=== PATIENT | female | born 1935 | race Caucasian/White ===

== ENCOUNTER 2018-03-05 13:50 | Inpatient (IN) | payer MEDICARE ==
[2018-03-05] MEDS ORDERED: Dextrose 50% Abboject 50 ML SYRINGE SLOW IVP PRN (17:40)
[2018-03-05] MEDS ORDERED: HumaLOG 300 UNITS/3 ML VIAL SC PRN ×2 (17:40)
[2018-03-05] MEDS ORDERED: Dextrose 5% in Water 1,000 ML IV PRN (17:40)
[2018-03-05] MEDS ORDERED: Nystatin Powder 15 GM BOT TOP PRN (18:07)
[2018-03-05] MEDS: Docusate 100 MG CAP PO SCH (20:23)
[2018-03-05] MEDS: Famotidine 20 MG TAB PO SCH (20:23)
[2018-03-05] MEDS: Furosemide 20 MG TAB PO SCH (20:24)
[2018-03-05] MEDS: rOPINIRole HCl 2 MG TAB PO SCH (20:25)
[2018-03-06 05:36] LABS: #Eosinphils 0.1 thou/uL (0.0-0.7); #Lymphocytes 1.4 thou/uL (1.20-3.40); #Monocytes 0.6 thou/uL (0.11-0.59); #Neutrophils 4.5 thou/uL (1.40-6.50); %Basophils 0.7 % (0.0-1.0); %Eosinophils 1.6 % (0.0-10.0); %Lymphocytes 20.9 % (21.0-51.0); %Monocytes 8.3 % (0.0-10.0); %Neutrophils 68.5 % (42.0-75.0); Hemoglobin 9.9 g/dL (12.0-16.0); Mean Corpuscular HGB CONC 33.1 g/dL (32.0-36.0); Mean Corpuscular Hemoglobin 30.4 pg (27.0-31.0); Mean Corpuscular Volume 91.9 fl (81.0-99.0); Mean Platelet Volume 6.9 fL (7.4-10.4); Platelet Count 184 thou/uL (130-400); RBC Distribution Width 13.7 % (11.5-14.5); Red Blood Cell (RBC) Count 3.25 mill/uL (4.20-5.40); White Blood Cell (WBC) Count 6.6 thou/uL (4.8-10.8)
[2018-03-06 05:47] LABS: Anion Gap 16 mmol/L (10-20); BUN (Urea Nitrogen) 48 mg/dL (9.8-20.1); Calc. Creatinine Clearance 52 mL/min (70-130); Calcium 9.2 mg/dL (7.8-10.44); Carbon Dioxide 36 mmol/L (23-31); Chloride 98 mmol/L (98-107); Estimated GFR-MDRD 30; Glucose 106 mg/dL (83-110); Potassium 3.8 mmol/L (3.5-5.1); Sodium 146 mmol/L (136-145)
[2018-03-06] MEDS: Carvedilol 3.125 MG TAB PO SCH ×2 (09:45→18:07)
[2018-03-06] MEDS: Potassium Chloride 10 MEQ TAB PO SCH (09:45)
[2018-03-06] MEDS: Allopurinol 100 MG TAB PO SCH (09:46)
[2018-03-06] MEDS: Docusate 100 MG CAP PO SCH ×2 (09:46→20:43)
[2018-03-06] MEDS: Aspirin 81 mg Enteric Coated Tablet PO SCH (09:46)
[2018-03-06] MEDS: Famotidine 20 MG TAB PO SCH ×2 (09:46→20:43)
[2018-03-06] MEDS: Losartan Potassium 50 MG TAB PO SCH (09:46)
[2018-03-06] MEDS: Furosemide 20 MG TAB PO SCH ×2 (09:46→20:43)
[2018-03-06] MEDS: Ferrous Sulfate 325 MG TAB PO SCH (09:47)
[2018-03-06] MEDS: rOPINIRole HCl 2 MG TAB PO SCH (20:43)
[2018-03-07] MEDS: Ferrous Sulfate 325 MG TAB PO SCH (09:05)
[2018-03-07] MEDS: Docusate 100 MG CAP PO SCH ×2 (09:05→21:14)
[2018-03-07] MEDS: Losartan Potassium 50 MG TAB PO SCH (09:05)
[2018-03-07] MEDS: Aspirin 81 mg Enteric Coated Tablet PO SCH (09:05)
[2018-03-07] MEDS: Allopurinol 100 MG TAB PO SCH (09:05)
[2018-03-07] MEDS: Famotidine 20 MG TAB PO SCH ×2 (09:05→21:15)
[2018-03-07] MEDS: Furosemide 20 MG TAB PO SCH ×2 (09:06→21:23)
[2018-03-07] MEDS: Potassium Chloride 10 MEQ TAB PO SCH (09:06)
[2018-03-07] MEDS: Carvedilol 3.125 MG TAB PO SCH ×2 (09:06→17:46)
[2018-03-07] MEDS: rOPINIRole HCl 2 MG TAB PO SCH (21:13)
[2018-03-07] MEDS: Lorazepam 0.5 MG TAB PO PRN (22:57)
[2018-03-08 05:31] LABS: #Eosinphils 0.2 thou/uL (0.0-0.7); #Lymphocytes 1.2 thou/uL (1.20-3.40); #Monocytes 0.5 thou/uL (0.11-0.59); #Neutrophils 4.4 thou/uL (1.40-6.50); %Basophils 0.6 % (0.0-1.0); %Eosinophils 3.2 % (0.0-10.0); %Lymphocytes 18.4 % (21.0-51.0); %Monocytes 7.8 % (0.0-10.0); %Neutrophils 69.9 % (42.0-75.0); Hemoglobin 10.3 g/dL (12.0-16.0); Mean Corpuscular HGB CONC 34.2 g/dL (32.0-36.0); Mean Corpuscular Hemoglobin 31.3 pg (27.0-31.0); Mean Corpuscular Volume 91.6 fl (81.0-99.0); Mean Platelet Volume 7.1 fL (7.4-10.4); Platelet Count 166 thou/uL (130-400); RBC Distribution Width 13.7 % (11.5-14.5); Red Blood Cell (RBC) Count 3.28 mill/uL (4.20-5.40); White Blood Cell (WBC) Count 6.4 thou/uL (4.8-10.8)
[2018-03-08 05:43] LABS: Anion Gap 18 mmol/L (10-20); BUN (Urea Nitrogen) 33 mg/dL (9.8-20.1); Calc. Creatinine Clearance 58 mL/min (70-130); Calcium 9.1 mg/dL (7.8-10.44); Carbon Dioxide 34 mmol/L (23-31); Estimated GFR-MDRD 35; Glucose 104 mg/dL (83-110)
[2018-03-08 05:47] LABS: Chloride 97 mmol/L (98-107); Potassium 3.7 mmol/L (3.5-5.1); Sodium 146 mmol/L (136-145)
[2018-03-08] MEDS: Lorazepam 0.5 MG TAB PO PRN (08:44)
[2018-03-08] MEDS: Docusate 100 MG CAP PO SCH ×2 (08:44→20:29)
[2018-03-08] MEDS: Famotidine 20 MG TAB PO SCH ×2 (08:44→20:28)
[2018-03-08] MEDS: Potassium Chloride 10 MEQ TAB PO SCH (08:44)
[2018-03-08] MEDS: Allopurinol 100 MG TAB PO SCH (08:45)
[2018-03-08] MEDS: Furosemide 20 MG TAB PO SCH (08:45)
[2018-03-08] MEDS: Aspirin 81 mg Enteric Coated Tablet PO SCH (08:45)
[2018-03-08] MEDS: Ferrous Sulfate 325 MG TAB PO SCH (08:45)
[2018-03-08] MEDS: Carvedilol 3.125 MG TAB PO SCH ×2 (08:45→17:43)
[2018-03-08] MEDS: Losartan Potassium 50 MG TAB PO SCH (08:45)
[2018-03-08] MEDS: Furosemide 40 MG TAB PO SCH (13:55)
[2018-03-08] MEDS: rOPINIRole HCl 2 MG TAB PO SCH (20:29)
[2018-03-09] MEDS: Allopurinol 100 MG TAB PO SCH (08:49)
[2018-03-09] MEDS: Potassium Chloride 10 MEQ TAB PO SCH (08:50)
[2018-03-09] MEDS: Losartan Potassium 50 MG TAB PO SCH (08:50)
[2018-03-09] MEDS: Carvedilol 3.125 MG TAB PO SCH ×2 (08:50→16:46)
[2018-03-09] MEDS: Famotidine 20 MG TAB PO SCH ×2 (08:50→20:30)
[2018-03-09] MEDS: Docusate 100 MG CAP PO SCH ×2 (08:50→20:30)
[2018-03-09] MEDS: Aspirin 81 mg Enteric Coated Tablet PO SCH (08:50)
[2018-03-09] MEDS: Furosemide 40 MG TAB PO SCH ×2 (08:50→13:38)
[2018-03-09] MEDS: Ferrous Sulfate 325 MG TAB PO SCH (08:51)
[2018-03-09] MEDS: Acetaminophen 325 MG TAB PO PRN (09:41)
[2018-03-09] MEDS: rOPINIRole HCl 2 MG TAB PO SCH (20:30)
[2018-03-10] MEDS: Carvedilol 3.125 MG TAB PO SCH ×2 (09:15→17:24)
[2018-03-10] MEDS: Furosemide 40 MG TAB PO SCH ×2 (09:15→14:02)
[2018-03-10] MEDS: Losartan Potassium 50 MG TAB PO SCH (09:15)
[2018-03-10] MEDS: Aspirin 81 mg Enteric Coated Tablet PO SCH (09:16)
[2018-03-10] MEDS: Famotidine 20 MG TAB PO SCH ×2 (09:16→21:09)
[2018-03-10] MEDS: Docusate 100 MG CAP PO SCH ×2 (09:16→21:09)
[2018-03-10] MEDS: Potassium Chloride 10 MEQ TAB PO SCH (09:17)
[2018-03-10] MEDS: Ferrous Sulfate 325 MG TAB PO SCH (09:17)
[2018-03-10] MEDS: Allopurinol 100 MG TAB PO SCH (09:17)
[2018-03-10] MEDS: rOPINIRole HCl 2 MG TAB PO SCH (21:09)
[2018-03-11] MEDS: Acetaminophen 325 MG TAB PO PRN (08:49)
[2018-03-11] MEDS: Allopurinol 100 MG TAB PO SCH (08:53)
[2018-03-11] MEDS: Carvedilol 3.125 MG TAB PO SCH ×2 (08:54→16:50)
[2018-03-11] MEDS: Famotidine 20 MG TAB PO SCH ×2 (08:54→20:54)
[2018-03-11] MEDS: Aspirin 81 mg Enteric Coated Tablet PO SCH (08:54)
[2018-03-11] MEDS: Furosemide 40 MG TAB PO SCH ×2 (08:54→13:59)
[2018-03-11] MEDS: Docusate 100 MG CAP PO SCH ×2 (08:54→20:54)
[2018-03-11] MEDS: Potassium Chloride 10 MEQ TAB PO SCH (08:55)
[2018-03-11] MEDS: Ferrous Sulfate 325 MG TAB PO SCH (08:55)
[2018-03-11] MEDS: Losartan Potassium 50 MG TAB PO SCH (08:56)
[2018-03-11] MEDS: rOPINIRole HCl 2 MG TAB PO SCH (20:54)
[2018-03-11] MEDS: Lorazepam 0.5 MG TAB PO PRN (23:56)
[2018-03-12 06:08] LABS: Anion Gap 17 mmol/L (10-20); BUN (Urea Nitrogen) 21 mg/dL (9.8-20.1); Calc. Creatinine Clearance 55 mL/min (70-130); Calcium 9.4 mg/dL (7.8-10.44); Carbon Dioxide 36 mmol/L (23-31); Estimated GFR-MDRD 32; Glucose 95 mg/dL (83-110)
[2018-03-12 06:13] LABS: Chloride 95 mmol/L (98-107); Potassium 3.8 mmol/L (3.5-5.1); Sodium 144 mmol/L (136-145)
[2018-03-12 06:14] LABS: #Basophils 0.1 thou/uL (0.0-0.2); #Eosinphils 0.1 thou/uL (0.0-0.7); #Lymphocytes 1.5 thou/uL (1.20-3.40); #Monocytes 0.6 thou/uL (0.11-0.59); #Neutrophils 4.3 thou/uL (1.40-6.50); %Basophils 0.8 % (0.0-1.0); %Eosinophils 2.2 % (0.0-10.0); %Lymphocytes 22.1 % (21.0-51.0); %Neutrophils 65.8 % (42.0-75.0); Hemoglobin 10.8 g/dL (12.0-16.0); Mean Corpuscular HGB CONC 32.7 g/dL (32.0-36.0); Mean Corpuscular Hemoglobin 30.4 pg (27.0-31.0); Mean Platelet Volume 7.9 fL (7.4-10.4); Platelet Count 170 thou/uL (130-400); RBC Distribution Width 14.3 % (11.5-14.5); Red Blood Cell (RBC) Count 3.54 mill/uL (4.20-5.40); White Blood Cell (WBC) Count 6.6 thou/uL (4.8-10.8)
[2018-03-12] MEDS: Aspirin 81 mg Enteric Coated Tablet PO SCH (08:57)
[2018-03-12] MEDS: Ferrous Sulfate 325 MG TAB PO SCH (08:58)
[2018-03-12] MEDS: Famotidine 20 MG TAB PO SCH ×2 (08:58→21:03)
[2018-03-12] MEDS: Furosemide 40 MG TAB PO SCH ×2 (08:58→14:22)
[2018-03-12] MEDS: Potassium Chloride 10 MEQ TAB PO SCH (08:58)
[2018-03-12] MEDS: Allopurinol 100 MG TAB PO SCH (08:59)
[2018-03-12] MEDS: Carvedilol 3.125 MG TAB PO SCH ×2 (08:59→16:36)
[2018-03-12] MEDS: Docusate 100 MG CAP PO SCH ×2 (08:59→21:03)
[2018-03-12] MEDS: Losartan Potassium 50 MG TAB PO SCH (09:00)
[2018-03-12] MEDS ORDERED: Furosemide 20 MG TAB PO SCH (09:00)
[2018-03-12] MEDS: rOPINIRole HCl 2 MG TAB PO SCH (21:03)
[2018-03-12] MEDS: Lorazepam 0.5 MG TAB PO PRN (22:01)
[2018-03-13] MEDS: Allopurinol 100 MG TAB PO SCH (08:53)
[2018-03-13] MEDS: Carvedilol 3.125 MG TAB PO SCH ×2 (08:54→17:25)
[2018-03-13] MEDS: Docusate 100 MG CAP PO SCH ×2 (08:54→20:37)
[2018-03-13] MEDS: Losartan Potassium 50 MG TAB PO SCH (08:54)
[2018-03-13] MEDS: Aspirin 81 mg Enteric Coated Tablet PO SCH (08:55)
[2018-03-13] MEDS: Furosemide 40 MG TAB PO SCH ×2 (08:55→15:08)
[2018-03-13] MEDS: Potassium Chloride 10 MEQ TAB PO SCH (08:55)
[2018-03-13] MEDS: Famotidine 20 MG TAB PO SCH ×2 (08:55→20:37)
[2018-03-13] MEDS: Ferrous Sulfate 325 MG TAB PO SCH (08:55)
[2018-03-13] MEDS: rOPINIRole HCl 2 MG TAB PO SCH (20:37)
[2018-03-14] MEDS: Ferrous Sulfate 325 MG TAB PO SCH (08:01)
[2018-03-14] MEDS: Docusate 100 MG CAP PO SCH ×2 (08:01→21:17)
[2018-03-14] MEDS: Furosemide 40 MG TAB PO SCH ×2 (08:01→14:31)
[2018-03-14] MEDS: Carvedilol 3.125 MG TAB PO SCH ×2 (08:01→17:26)
[2018-03-14] MEDS: Aspirin 81 mg Enteric Coated Tablet PO SCH (08:01)
[2018-03-14] MEDS: Potassium Chloride 10 MEQ TAB PO SCH (08:02)
[2018-03-14] MEDS: Allopurinol 100 MG TAB PO SCH (08:02)
[2018-03-14] MEDS: Losartan Potassium 50 MG TAB PO SCH (08:02)
[2018-03-14] MEDS: Famotidine 20 MG TAB PO SCH ×2 (08:02→21:18)
[2018-03-14] MEDS: Acetaminophen 325 MG TAB PO PRN (15:49)
[2018-03-14] MEDS: rOPINIRole HCl 2 MG TAB PO SCH (21:18)
[2018-03-15] MEDS: Furosemide 40 MG TAB PO SCH ×2 (09:28→13:32)
[2018-03-15] MEDS: Allopurinol 100 MG TAB PO SCH (09:28)
[2018-03-15] MEDS: Docusate 100 MG CAP PO SCH ×2 (09:28→21:02)
[2018-03-15] MEDS: Ferrous Sulfate 325 MG TAB PO SCH (09:29)
[2018-03-15] MEDS: Carvedilol 3.125 MG TAB PO SCH ×2 (09:29→17:27)
[2018-03-15] MEDS: Potassium Chloride 10 MEQ TAB PO SCH (09:29)
[2018-03-15] MEDS: Famotidine 20 MG TAB PO SCH ×2 (09:29→21:00)
[2018-03-15] MEDS: Losartan Potassium 50 MG TAB PO SCH (09:29)
[2018-03-15] MEDS: Aspirin 81 mg Enteric Coated Tablet PO SCH (09:29)
[2018-03-15] MEDS: rOPINIRole HCl 2 MG TAB PO SCH (21:02)
[2018-03-16 09:25] VITALS: BMI 43.0
[2018-03-16] MEDS: Aspirin 81 mg Enteric Coated Tablet PO SCH (09:28)
[2018-03-16] MEDS: Furosemide 40 MG TAB PO SCH ×2 (09:29→13:36)
[2018-03-16] MEDS: Docusate 100 MG CAP PO SCH ×2 (09:29→21:02)
[2018-03-16] MEDS: Potassium Chloride 10 MEQ TAB PO SCH (09:29)
[2018-03-16] MEDS: Ferrous Sulfate 325 MG TAB PO SCH (09:29)
[2018-03-16] MEDS: Allopurinol 100 MG TAB PO SCH (09:29)
[2018-03-16] MEDS: Losartan Potassium 50 MG TAB PO SCH (09:29)
[2018-03-16] MEDS: Famotidine 20 MG TAB PO SCH ×2 (09:30→21:01)
[2018-03-16] MEDS: Carvedilol 3.125 MG TAB PO SCH ×2 (09:30→17:08)
[2018-03-16] MEDS: Acetaminophen 325 MG TAB PO PRN (09:30)
[2018-03-16] MEDS: rOPINIRole HCl 2 MG TAB PO SCH (21:02)
[2018-03-17] MEDS: Docusate 100 MG CAP PO SCH (08:38)
[2018-03-17] MEDS: Ferrous Sulfate 325 MG TAB PO SCH (08:39)
[2018-03-17] MEDS: Aspirin 81 mg Enteric Coated Tablet PO SCH (08:39)
[2018-03-17] MEDS: Potassium Chloride 10 MEQ TAB PO SCH (08:39)
[2018-03-17] MEDS: Allopurinol 100 MG TAB PO SCH (08:40)
[2018-03-17] MEDS: Furosemide 40 MG TAB PO SCH ×2 (08:40→14:16)
[2018-03-17] MEDS: Famotidine 20 MG TAB PO SCH (08:41)
[2018-03-17] MEDS: Losartan Potassium 50 MG TAB PO SCH (08:42)
[2018-03-17] MEDS: Carvedilol 3.125 MG TAB PO SCH ×2 (08:42→17:54)
[2018-03-17 17:58] VITALS: BP 132/68; TEMP 98
== END 2018-03-17 19:39 | disposition home health service (06) | DRG 292 ==
LOC: UNDOADMIN 16:20 → BURMED 16:20
PROVIDERS: ADMIT Family Medicine; ATTEND Family Medicine
DX: I13.0 Hypertensive heart and chronic kidney disease with heart failure and stage 1 through stage 4 chronic kidney disease, or unspecified chronic kidney disease (principal); E66.2 Morbid (severe) obesity with alveolar hypoventilation; Z68.41 Body mass index [BMI] 40.0-44.9, adult; I50.32 Chronic diastolic (congestive) heart failure; L89.152 Pressure ulcer of sacral region, stage 2; N18.3 Chronic kidney disease, stage 3 (moderate); E11.22 Type 2 diabetes mellitus with diabetic chronic kidney disease; Z79.4 Long term (current) use of insulin; E78.5 Hyperlipidemia, unspecified; M10.9 Gout, unspecified; G25.81 Restless legs syndrome; D50.9 Iron deficiency anemia, unspecified; D63.8 Anemia in other chronic diseases classified elsewhere; E87.6 Hypokalemia; Z66 Do not resuscitate; F41.9 Anxiety disorder, unspecified; E11.610 Type 2 diabetes mellitus with diabetic neuropathic arthropathy
CPT/HCPCS: 36415; 36416; 80048; 83880; 85025; 94640; G8978-GP-CL; G8979-GP-CJ; G8987-GO-CL; G8988-GO-CJ; J7620